=== PATIENT | female | born 1995 | race Caucasian/White ===

== ENCOUNTER 2017-09-29 15:20 | Outpatient (CLI) | payer BC ==
[2017-09-29 15:34] VITALS: BP 102/60
[2017-09-29] MEDS ORDERED: LOPERAMIDE 2 MG CAPSULE PO ONE (16:00)
[2017-09-29] MEDS ORDERED: ONDANSETRON ODT 4 MG PO ONE (16:00)
[2017-09-29] MEDS ORDERED: ONDANSETRON ODT 4 MG ONE (16:02)
[2017-09-29 16:54] LABS: RAPID INFLUENZA A Negative (Negative); RAPID INFLUENZA B Negative (Negative)
[2017-09-29 16:59] LABS: HEMATOCRIT 35.2 % (34.6-47.8); HEMOGLOBIN 11.9 g/dL (11.7-16.4); WHITE BLOOD COUNT 11.8 x10^3/uL (3.4-10)
[2017-09-29 17:08] LABS: BLOOD UREA NITROGEN 11 mg/dL (7-18)
[2017-09-29 17:12] LABS: ASPARTATE AMINO TRANSFERASE 10 U/L (15-37)
== END 2017-09-29 18:30 | disposition home or self-care (01) ==
LOC: LDOP 15:20
PROVIDERS: ATTEND Obstetrics & Gynecology
DX: O26.892 Other specified pregnancy related conditions, second trimester (principal); O21.9 Vomiting of pregnancy, unspecified; R19.7 Diarrhea, unspecified; R11.0 Nausea; R10.9 Unspecified abdominal pain; Z3A.27 27 weeks gestation of pregnancy
CPT/HCPCS: 36415; 59025; 80053; 81001; 85025; 87086; 87400; 99211; Q0162; G0463

== ENCOUNTER 2017-10-31 15:40 | Observation (INO) | payer BC ==
[~2017-10-31] VITALS: Ht 160 cm; Wt 87.3 kg
[2017-10-31 16:17] VITALS: BP 106/57
[2017-10-31] MEDS ORDERED: FLU VACC QS2017-18 (36MOS+) UP/PF 0.5 ML IM-VACC ONE (16:30)
[2017-10-31 17:10] LABS: DAU SCREEN DISCLAIMER
== END 2017-10-31 18:25 | disposition home or self-care (01) ==
LOC: LDOP 15:40 → LDIP 15:41 → LDOP 15:47
PROVIDERS: ADMIT Obstetrics & Gynecology; ATTEND Obstetrics & Gynecology
DX: O47.1 False labor at or after 37 completed weeks of gestation (principal); O46.93 Antepartum hemorrhage, unspecified, third trimester; Z23 Encounter for immunization; Z3A.39 39 weeks gestation of pregnancy
CPT/HCPCS: 59025; 80307; 81001; 81003; 87086; 90471; 90686; 99211; G0378; P9612; 96372; G0463; G0479

== ENCOUNTER 2017-11-01 09:28 | Outpatient (CLI) | payer BC ==
[~2017-11-01] VITALS: Ht 160 cm; Wt 87.2 kg
[2017-11-01 10:06] VITALS: BP 111/57
== END 2017-11-01 12:25 | disposition home or self-care (01) ==
LOC: LDOP 09:28
PROVIDERS: ATTEND Obstetrics & Gynecology
DX: O26.893 Other specified pregnancy related conditions, third trimester (principal); O62.9 Abnormality of forces of labor, unspecified; R10.9 Unspecified abdominal pain; Z3A.31 31 weeks gestation of pregnancy
CPT/HCPCS: 59025; 99211; G0463

== ENCOUNTER 2017-11-10 03:15 | Emergency (ER) | payer BC ==
[~2017-11-10] VITALS: Ht 160 cm; Wt 88.3 kg
[2017-11-10 03:19] VITALS: BP 107/71
== END 2017-11-10 04:31 | disposition home or self-care (01) ==
LOC: ED 04:18
DX: O23.593 Infection of other part of genital tract in pregnancy, third trimester (principal); Z3A.33 33 weeks gestation of pregnancy
CPT/HCPCS: 99283

== ENCOUNTER 2017-11-12 00:42 | Emergency (ER) | payer BC ==
[~2017-11-12] VITALS: Ht 160 cm; Wt 85.1 kg
[2017-11-12] MEDS ORDERED: PROPOFOL 10 MG/ML, 20ML ONE ×2 (02:54→02:55)
[2017-11-12] MEDS ORDERED: PROPOFOL 100 ML IV ONE (02:54)
[2017-11-12] MEDS ORDERED: PROPOFOL 10 MG/ML, 20ML IVPush ONE ×3 (03:00→04:30)
[2017-11-12] MEDS ORDERED: LIDOCAINE 1%, 10ML ONE (03:13)
[2017-11-12] MEDS ORDERED: MORPHINE SULFATE 4 MG/ML, 1ML IV ONE (04:30)
[2017-11-12] MEDS ORDERED: MORPHINE SULFATE 4 MG/ML, 1ML ONE (04:31)
[2017-11-12 05:18] VITALS: BP 135/81
== END 2017-11-12 05:20 | disposition home or self-care (01) ==
LOC: ED 03:45
DX: O26.893 Other specified pregnancy related conditions, third trimester (principal); Z3A.33 33 weeks gestation of pregnancy; N75.1 Abscess of Bartholin's gland
CPT/HCPCS: 56420; 96374; 99152; 99285; J2704

== ENCOUNTER 2017-11-27 14:56 | Outpatient (CLI) | payer BC ==
[~2017-11-27] VITALS: Ht 160 cm; Wt 87.7 kg
[2017-11-27 15:42] VITALS: BP 101/55
== END 2017-11-27 16:15 | disposition home or self-care (01) ==
LOC: LDOP 14:56
PROVIDERS: ATTEND Obstetrics & Gynecology
DX: O36.8130 Decreased fetal movements, third trimester, not applicable or unspecified (principal); O62.9 Abnormality of forces of labor, unspecified; O26.893 Other specified pregnancy related conditions, third trimester; R10.9 Unspecified abdominal pain; Z3A.35 35 weeks gestation of pregnancy
CPT/HCPCS: 59025; 99211; G0463

== ENCOUNTER 2017-12-08 12:32 | Observation (INO) | payer BC ==
[~2017-12-08] VITALS: Ht 160 cm; Wt 90.0 kg
[2017-12-08] MEDS ORDERED: LACTATED RINGERS 1,000 ML IVBOLUS ONE (13:30)
[2017-12-08] MEDS ORDERED: PLEASE ENTER HEIGHT AND WEIGHT MC SCH (13:30)
[2017-12-08 13:32] VITALS: BP 116/67
[2017-12-08] MEDS ORDERED: FENTANYL PF 100 MCG/2ML ONE (16:06)
[2017-12-08] MEDS ORDERED: FENTANYL PF 100 MCG/2ML IV PRN (16:30)
[2017-12-08] MEDS ORDERED: MEPERIDINE/PF 100 MG/ML ONE ×2 (17:46→22:45)
[2017-12-08] MEDS ORDERED: PROMETHAZINE 25 MG/ML, 1ML ONE ×2 (17:48→22:45)
[2017-12-08] MEDS ORDERED: FENTANYL PF 100 MCG/2ML IVPush PRN (18:00)
[2017-12-08] MEDS ORDERED: PROMETHAZINE 25 MG/ML, 1ML IM ONE (18:00)
[2017-12-08] MEDS ORDERED: LACTATED RINGERS 1,000 ML IV SCH (18:00)
[2017-12-08] MEDS ORDERED: MEPERIDINE/PF 100 MG/ML IM ONE (18:00)
[2017-12-08 19:57] LABS: MICROSCOPIC NOT IND
[2017-12-08] MEDS: PROMETHAZINE 25 MG/ML, 1ML IM PRN (22:46)
[2017-12-08] MEDS: MEPERIDINE/PF 100 MG/ML IM PRN (22:46)
[2017-12-09] MEDS ORDERED: FENTANYL PF 100 MCG/2ML ONE (03:07)
[2017-12-09] MEDS ORDERED: MEPERIDINE/PF 100 MG/ML ONE (03:09)
[2017-12-09] MEDS ORDERED: PROMETHAZINE 25 MG/ML, 1ML ONE (03:09)
[2017-12-09] MEDS: MEPERIDINE/PF 100 MG/ML IM PRN (03:29)
[2017-12-09] MEDS: PROMETHAZINE 25 MG/ML, 1ML IM PRN (03:29)
== END 2017-12-09 08:10 | disposition home or self-care (01) ==
LOC: LDOP 12:32 → EDIP 16:39 → LDIP 23:55
PROVIDERS: ADMIT Obstetrics & Gynecology; ATTEND Obstetrics & Gynecology
DX: O62.9 Abnormality of forces of labor, unspecified (principal); Z3A.37 37 weeks gestation of pregnancy
CPT/HCPCS: 81003; 96361; 96372; 96374; G0378; J2175; J2550; J3010; J7120

== ENCOUNTER 2017-12-17 04:10 | Outpatient (CLI) | payer BC ==
[~2017-12-17] VITALS: Ht 160 cm; Wt 92.0 kg
== END 2017-12-17 05:50 | disposition home or self-care (01) ==
LOC: LDOP 04:10
PROVIDERS: ATTEND Obstetrics & Gynecology
DX: O26.893 Other specified pregnancy related conditions, third trimester (principal); R10.9 Unspecified abdominal pain; Z3A.38 38 weeks gestation of pregnancy
CPT/HCPCS: 59025; 99211; G0463

== ENCOUNTER 2017-12-20 16:30 | Inpatient (IN) | payer BC ==
[~2017-12-20] VITALS: Ht 160 cm; Wt 91.3 kg
[2017-12-20] MEDS ORDERED: OXYTOCIN 30U/ 0.9% NaCL 500ML 500 ML ONE (16:34)
[2017-12-20] MEDS ORDERED: NEWBORN KIT ONE (16:34)
[2017-12-20] MEDS ORDERED: LIDOCAINE 1%, 20ML ONE (16:34)
[2017-12-20] MEDS ORDERED: MISOPROSTOL 200 MCG TABLET ONE (16:34)
[2017-12-20] MEDS ORDERED: PREN-53 PO (16:36)
[2017-12-20 17:00] VITALS: BP 110/58
[2017-12-20] MEDS ORDERED: OXYTOCIN 30U/ 0.9% NaCL 500ML 500 ML IV ONE (21:24)
[2017-12-20] MEDS ORDERED: D5%-LACTATED RINGERS 1,000 ML IV SCH (21:24)
[2017-12-20] MEDS ORDERED: CALCIUM CARBONATE 500 MG TAB.CHEW PO PRN (21:30)
[2017-12-20] MEDS ORDERED: ALUMINUM/MAG/SIMETHICONE 30 ML UDC PO PRN (21:30)
[2017-12-20] MEDS ORDERED: TERBUTALINE 1 MG/ML, 1ML IVPush PRN ×2 (21:30)
[2017-12-20] MEDS ORDERED: METOCLOPRAMIDE 5 MG/ML, 2ML IVPush PRN (21:30)
[2017-12-20] MEDS ORDERED: TERBUTALINE 1 MG/ML, 1ML SQ PRN (21:30)
[2017-12-20] MEDS ORDERED: FENTANYL PF 100 MCG/2ML IV PRN (21:30)
[2017-12-20] MEDS ORDERED: ALUMINUM/MAG/SIMETHICONE 30 ML UDC ONE (21:37)
[2017-12-20] MEDS: LACTATED RINGERS 1,000 ML IV SCH (21:40)
[2017-12-20 21:43] LABS: BASOPHILS # (AUTO) 0.09 x10^3/uL (0-0.1); BASOPHILS % (AUTO) 1 % (0-1); EOSINOPHILS # (AUTO) 0.07 x10^3/uL (0-0.4); EOSINOPHILS % (AUTO) 1 % (1-7); LYMPHOCYTES # (AUTO) 3.21 x10^3/uL (1-3.4); LYMPHOCYTES % (AUTO) 30 % (22-44); MD NO; MEAN CORPUSCULAR HEMOGLOBIN 27.9 pg (27.0-34.8); MEAN CORPUSCULAR HGB CONC 33.1 g/dL (32.4-35.8); MEAN CORPUSCULAR VOLUME 84.4 fL (80-100); MEAN PLATELET VOLUME 9.9 fL (7.4-10.4); MONOCYTES # (AUTO) 0.71 x10^3/uL (0.2-0.8); MONOCYTES % (AUTO) 7 % (2-9); NEUTROPHILS # (AUTO) 6.73 x10^3/uL (1.8-6.8); NEUTROPHILS % (AUTO) 62 % (42-75); PLATELET COUNT 229 x10^3/uL (130-400); RED BLOOD COUNT 3.83 x10^6/uL (3.82-5.3); RED CELL DISTRIBUTION WIDTH 13.9 % (9.6-15.2)
[2017-12-20 22:09] VITALS: BP 112/65
[2017-12-20] MEDS ORDERED: FENTANYL PF 100 MCG/2ML ONE (22:42)
[2017-12-20] MEDS: FENTANYL PF 100 MCG/2ML IVPush PRN (22:45)
[2017-12-21] MEDS ORDERED: FENTANYL PF 100 MCG/2ML ONE (00:41)
[2017-12-21] MEDS: FENTANYL PF 100 MCG/2ML IVPush PRN (00:44)
[2017-12-21] MEDS: LACTATED RINGERS 1,000 ML IV SCH ×3 (01:24→03:20)
[2017-12-21] MEDS ORDERED: FENTANYL/BUPIV./NS/PF 250 ML EPIDCONT ONE ×2 (01:47→01:51)
[2017-12-21] MEDS ORDERED: LIDOCAINE/PF 1.5%-EPI 1:200K, 30ML ONE (01:51)
[2017-12-21] MEDS ORDERED: BUPIVACAINE 0.25% ONE (01:51)
[2017-12-21] MEDS ORDERED: FENTANYL/BUPIV./NS/PF 250 ML EPIDCONT SCH (02:29)
[2017-12-21] MEDS ORDERED: NALOXONE 0.4 MG/ML, 1ML IVPush PRN (02:30)
[2017-12-21] MEDS ORDERED: LACTATED RINGERS 1,000 ML IVBOLUS PRN (02:30)
[2017-12-21] MEDS ORDERED: DIPHENHYDRAMINE 50 MG/ML, 1ML IVPush PRN (02:30)
[2017-12-21] MEDS ORDERED: EPHEDRINE 50 MG/ML, 1ML IVPush PRN (02:30)
[2017-12-21] MEDS ORDERED: ONDANSETRON 2MG/ML, 2ML IVPush PRN (02:30)
[2017-12-21] MEDS ORDERED: OXYTOCIN 30U/ 0.9% NaCL 500ML 500 ML IV PRN (02:41)
[2017-12-21] MEDS ORDERED: OXYTOCIN 30U/ 0.9% NaCL 500ML 500 ML ONE (02:42)
[2017-12-21] MEDS ORDERED: ONDANSETRON 2MG/ML, 2ML ONE (03:52)
[2017-12-21] MEDS: OXYTOCIN 30U/ 0.9% NaCL 500ML 500 ML IV SCH ×2 (05:37→15:37)
[2017-12-21] MEDS ORDERED: DOCUSATE 100 MG CAPSULE PO PRN (06:00)
[2017-12-21] MEDS ORDERED: DIPH,PERTUSS(ACELL),TET VAC/PF NC IM-VACC PRN (06:00)
[2017-12-21] MEDS ORDERED: CARBOPROST TROMETHAMINE 250 MCG/ML, 1ML IM PRN (06:00)
[2017-12-21] MEDS ORDERED: METHYLERGONOVINE 0.2 MG/ML IM PRN (06:00)
[2017-12-21] MEDS ORDERED: OXYcodone/APAP 5/325MG TABLET PO PRN ×2 (06:00)
[2017-12-21] MEDS ORDERED: ACETAMINOPHEN 325 MG TABLET PO PRN (06:00)
[2017-12-21 08:25] VITALS: BP 109/73
[2017-12-21] MEDS: PRENATAL VIT/IRON/FA 1 EACH TABLET PO SCH (09:00)
[2017-12-21 12:30] VITALS: BP 118/77
[2017-12-21] MEDS: IBUPROFEN 600 MG TABLET PO PRN ×2 (12:58→18:53)
[2017-12-21 13:06] LABS: BASOPHILS # (AUTO) 0.05 x10^3/uL (0-0.1); BASOPHILS % (AUTO) 0 % (0-1); EOSINOPHILS # (AUTO) 0.04 x10^3/uL (0-0.4); EOSINOPHILS % (AUTO) 0 % (1-7); LYMPHOCYTES # (AUTO) 2.37 x10^3/uL (1-3.4); LYMPHOCYTES % (AUTO) 17 % (22-44); MD NO; MEAN CORPUSCULAR HGB CONC 33.3 g/dL (32.4-35.8); MEAN CORPUSCULAR VOLUME 83.9 fL (80-100); MEAN PLATELET VOLUME 9.6 fL (7.4-10.4); MONOCYTES # (AUTO) 0.58 x10^3/uL (0.2-0.8); MONOCYTES % (AUTO) 4 % (2-9); NEUTROPHILS # (AUTO) 10.53 x10^3/uL (1.8-6.8); NEUTROPHILS % (AUTO) 78 % (42-75); PLATELET COUNT 191 x10^3/uL (130-400); RED BLOOD COUNT 4.23 x10^6/uL (3.82-5.3); RED CELL DISTRIBUTION WIDTH 13.9 % (9.6-15.2)
[2017-12-21 19:50] VITALS: BP 116/79
[2017-12-22 01:00] VITALS: BP 115/74
[2017-12-22] MEDS: OXYTOCIN 30U/ 0.9% NaCL 500ML 500 ML IV SCH ×2 (01:37→11:37)
[2017-12-22 04:43] VITALS: BP 110/74
[2017-12-22 08:05] VITALS: BP 117/80
[2017-12-22] MEDS: IBUPROFEN 600 MG TABLET PO PRN ×2 (08:10→13:34)
[2017-12-22] MEDS: PRENATAL VIT/IRON/FA 1 EACH TABLET PO SCH (08:10)
[2017-12-22] MEDS ORDERED: DOCU-131 PO (10:14)
[2017-12-22] MEDS ORDERED: IBUP-1222 PO (10:14)
== END 2017-12-22 17:13 | disposition home or self-care (01) | DRG 775 ==
LOC: LDOP 16:30 → LDIP 21:24 → 2NW 12-21 08:22
PROVIDERS: ADMIT Obstetrics & Gynecology; ATTEND Obstetrics & Gynecology
PROC: 10E0XZZ Delivery of Products of Conception, External Approach (ICD-10-PCS; principal; 2017-12-21)
PROC: 3E0R3BZ Introduction of Anesthetic Agent into Spinal Canal, Percutaneous Approach (ICD-10-PCS; 2017-12-21)
PROC: 00HU33Z Insertion of Infusion Device into Spinal Canal, Percutaneous Approach (ICD-10-PCS; 2017-12-21)
DX: O69.1XX0 Labor and delivery complicated by cord around neck, with compression, not applicable or unspecified (principal); N85.8 Other specified noninflammatory disorders of uterus; O75.89 Other specified complications of labor and delivery; Z37.0 Single live birth; Z3A.38 38 weeks gestation of pregnancy
CPT/HCPCS: 36415; 85025; 86850; 86900; J2405; J3010; J3490; J2590; J7120

== ENCOUNTER 2018-01-03 10:44 | Emergency (ER) | payer BC ==
[~2018-01-03] VITALS: Ht 160 cm; Wt 78.0 kg
[~2018-01-03 10:44] MED LIST: DOCU-131 PO; IBUP-1222 PO; PREN-53 PO
[2018-01-03] MEDS ORDERED: SODIUM CHLORIDE 0.9% 1,000ML IVBOLUS ONE (12:30)
[2018-01-03] MEDS ORDERED: ONDANSETRON 2MG/ML, 2ML IVPush ONE (12:30)
[2018-01-03] MEDS ORDERED: SODIUM CHLORIDE FLUSH 10ML SYR IVF ONE (12:30)
[2018-01-03] MEDS ORDERED: ONDANSETRON 2MG/ML, 2ML ONE (12:35)
[2018-01-03 12:53] LABS: RAPID INFLUENZA A Negative (Negative); RAPID INFLUENZA B Negative (Negative)
[2018-01-03 13:04] LABS: BASOPHILS # (AUTO) 0.02 x10^3/uL (0-0.1); BASOPHILS % (AUTO) 0 % (0-1); EOSINOPHILS # (AUTO) 0.06 x10^3/uL (0-0.4); EOSINOPHILS % (AUTO) 1 % (1-7); LYMPHOCYTES # (AUTO) 1.43 x10^3/uL (1-3.4); LYMPHOCYTES % (AUTO) 20 % (22-44); MD NO; MEAN CORPUSCULAR HGB CONC 33.2 g/dL (32.4-35.8); MEAN CORPUSCULAR VOLUME 84.2 fL (80-100); MEAN PLATELET VOLUME 9.4 fL (7.4-10.4); MONOCYTES # (AUTO) 0.35 x10^3/uL (0.2-0.8); MONOCYTES % (AUTO) 5 % (2-9); NEUTROPHILS # (AUTO) 5.19 x10^3/uL (1.8-6.8); NEUTROPHILS % (AUTO) 74 % (42-75); PLATELET COUNT 233 x10^3/uL (130-400); RED BLOOD COUNT 5.06 x10^6/uL (3.82-5.3); RED CELL DISTRIBUTION WIDTH 14.3 % (9.6-15.2)
[2018-01-03 13:08] LABS: CULTURE INDICATED? NO; MICROSCOPIC AUTO
[2018-01-03 13:12] LABS: ALANINE AMINOTRANSFERASE 61 U/L (12-78); ALBUMIN 3.4 g/dL (3.4-5.0); ANION GAP 10 mmol/L (5-15); CALCIUM 8.2 mg/dL (8.5-10.1); CHLORIDE 107 mmol/L (98-107); CREATININE 1.08 mg/dL (0.55-1.02)
[2018-01-03 13:15] LABS: ALKALINE PHOSPHATASE 87 U/L (45-117); BILIRUBIN,TOTAL 0.7 mg/dL (0.2-1.0)
[2018-01-03 14:05] VITALS: BP 111/64
== END 2018-01-03 14:07 | disposition home or self-care (01) ==
LOC: ED 12:46
DX: R11.2 Nausea with vomiting, unspecified (principal); R19.7 Diarrhea, unspecified
CPT/HCPCS: 36415; 80053; 81001; 83690; 85025; 87400; 96361; 96374; 99284; J2405; J7030